=== PATIENT | female | born 1950 | race Caucasian/White ===

== ENCOUNTER 2016-10-24 20:35 | Emergency (ER) | payer OTHER, MEDICARE, BC ==
[~2016-10-24] VITALS: Ht 170.2 cm; Wt 104.5 kg
[2016-10-24] MEDS ORDERED: fentaNYL 100 MCG/2 ML INJECTION (J3010) IV ONE (21:00)
[2016-10-24 21:58] LABS: CALCIUM LEVEL 9.4 MG/DL (8.8-10.2); CREATININE FOR GFR 1.02 MG/DL (0.55-1.02); GLOMERULAR FILTRATION RATE 57.5 (>45); POTASSIUM SERUM 3.7 MEQ/L (3.5-5.1)
[2016-10-24] MEDS ORDERED: ISOVUE-370 76% 100ML VIAL (Q9967) As Ordered ONE (22:00)
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
[2016-10-24] MEDS ORDERED: PERC5TAB12 PO (23:54)
[2016-10-25] MEDS ORDERED: PERCOCET 5MG/325MG TAB PO ONE
[2016-10-25] MEDS ORDERED: KETOROLAC 30 MG/ML VIAL (J1885) IV ONE
[2016-10-25 01:20] VITALS: BP 158/76
--- NOTE | 2016-10-25 20:23 | ECGEPIP ---
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
== END 2016-10-25 01:23 | disposition home or self-care (01) ==
LOC: M ED 20:35
DX: Z04.1 Encounter for examination and observation following transport accident (principal); M54.2 Cervicalgia; M54.5 Low back pain; V49.50XA Passenger injured in collision with unspecified motor vehicles in traffic accident, initial encounter; Y92.410 Unspecified street and highway as the place of occurrence of the external cause; Y93.89 Activity, other specified; Y99.8 Other external cause status; I10 Essential (primary) hypertension; E03.9 Hypothyroidism, unspecified; M85.9 Disorder of bone density and structure, unspecified; Z79.01 Long term (current) use of anticoagulants
CPT/HCPCS: 70450; 71260; 72125; 74177; 80048; 93005; 96374; 96375; 99284; J1885; J3010; Q9967

== ENCOUNTER 2019-11-05 18:39 | Emergency (ER) | payer MEDICARE, BC, OTHER ==
[~2019-11-05] VITALS: Ht 170.2 cm; Wt 113.1 kg
[~2019-11-05 18:39] MED LIST: PERC5TAB12 PO
[2019-11-05] MEDS ORDERED: LEVO150T7 (20:32)
[2019-11-05] MEDS ORDERED: MECL-86 (20:32)
[2019-11-05] MEDS ORDERED: VALS160T2 (20:32)
[2019-11-05] MEDS ORDERED: PANT40TA29 (20:32)
[2019-11-05] MEDS ORDERED: METO1TAB87 (20:32)
[2019-11-05] MEDS ORDERED: ROSU10TA6 (20:32)
[2019-11-05] MEDS ORDERED: METH4PACK (20:32)
[2019-11-05] MEDS ORDERED: LIDOCAINE 4% CREAM 5GM (LMX4) TOP ONE (21:30)
--- NOTE | 2019-11-05 23:17 | REPVR ---
PROCEDURE INFORMATION: Exam: US Duplex Lower Extremity Veins, Bilateral Exam date and time: 11/05/2019 11:03 PM Age: 68 years old Clinical indication: Pain; Leg, upper and leg, lower; Right TECHNIQUE: Imaging protocol: Real-time duplex ultrasound of the extremities with 2-D lockwood scale, color Doppler flow and spectral waveform analysis with image documentation. Complete exam focused on the bilateral lower extremity veins. COMPARISON: No relevant prior studies available. FINDINGS: Right deep veins: Unremarkable. The common femoral, femoral, proximal profunda femoral and popliteal veins are patent without thrombus. Normal Doppler waveforms. Normal compressibility and/or augmentation response. Right superficial veins: Saphenofemoral junction is patent without thrombus. Left deep veins: Unremarkable. The common femoral, femoral, proximal profunda femoral and popliteal veins are patent without thrombus. Normal Doppler waveforms. Normal compressibility and/or augmentation response. Left superficial veins: Saphenofemoral junction is patent without thrombus. Soft tissues: Unremarkable. IMPRESSION: No evidence of deep vein thrombosis. Electronically signed by: Joshua Davis On 11/05/2019 23:17:43 PM
[2019-11-06] MEDS ORDERED: ANEC4CRE3 TOP (00:07)
[2019-11-06 00:15] VITALS: BP 148/84
== END 2019-11-06 00:19 | disposition home or self-care (01) ==
LOC: M ED 18:39
DX: M25.561 Pain in right knee (principal); M25.461 Effusion, right knee; R60.0 Localized edema; I10 Essential (primary) hypertension; E78.5 Hyperlipidemia, unspecified; E03.9 Hypothyroidism, unspecified; Z79.899 Other long term (current) drug therapy